=== PATIENT | female | born 1995 | race Caucasian/White ===

== ENCOUNTER 2019-08-10 16:28 | Emergency (ER) | payer BC, SELFPAY ==
[2019-08-10 16:34] VITALS: BP 113/71; PULSE 100; RESP 16; TEMP 37.4; O2SAT 100
--- NOTE | 2019-08-10 17:51 | ED.UPPEXIN ---
HPI - Extremity Injury (Upper) General Chief Complaint: Extremity Injury, Upper Stated Complaint: left shoulder pain Time Seen by Provider: 08/10/19 17:51 Source: patient and RN notes reviewed Mode of arrival: ambulatory Limitations: no limitations History of Present Illness HPI narrative: 24-year-old female accompanied by friend presents to express care with complaints of pain to her posterior left shoulder and neck which started today. Patient states that she had an injury to her left shoulder previously 2 years ago and it just started hurting her again today. Patient denies any recent known injury causing her pain. Patient states that her pain is constant and rates her pain a 8/10, has not taken any OTC analgesics for her discomfort. Patient has full ROM of left arm with no AC joint tenderness,no radiation of pain down arm, strong pulses to her left arm is able to move neck from side to side and forward and back with stated minimal increase in pain. MD complaint: injury to: left and shoulder Onset (ago): day(s) (1) Other Extremity Injury: Left: shoulder (posterior aspect) Other injuries: neck (posterior left neck) Handedness: right Place: other (states no known recent injury) Severity: moderate Severity scale (1-10): 8 Relieving factors: none Exacerbating factors: movement of extremity Context: other (injury stated 2 years ago denies any known recent injury) Associated symptoms: neck pain Treatments prior to arrival: other (none) Related Data Allergies Allergy/AdvReac Type Severity Reaction Status Date / Time clindamycin Allergy Unknown STOMACH Verified 08/10/19 16:45 PAIN/VOMITING KETOROLAC TROMETHAMINE Allergy Unknown Unknown Uncoded 08/10/19 16:45 Review of Systems Review of Systems: Narrative: CONSTITUTIONAL: Denies fever, chills, or sweats. EYES: Denies visual changes, redness, or discharge. ENT: Denies rhinorrhea, congestion, sore throat, or otalgia. CARDIOVASCULAR: Denies chest pain, palpitations, or edema. RESPIRATORY: Denies cough or dyspnea. GASTROINTESTINAL: Denies abdominal pain, nausea, vomiting, or diarrhea. GENITOURINARY: Denies dysuria or hematuria. SKIN: Denies rash or itching. MUSCULOSKELETAL: positive for posterior neck and left shoulder pain, joint pain, or myalgia. NEUROLOGIC: Denies headache, numbness, or weakness. PSYCHIATRIC: Denies anxiety or depression. All systems reviewed & are unremarkable except as noted in HPI and below PMFSH Past Medical History Medical History (Updated 08/13/19 @ 15:50 by Ilda Trujillo NP) Bipolar 1 disorder Depression History of dental problems induced hypertension Sciatica Social History Social History (Updated 08/13/19 @ 16:00 by Ilda Trujillo NP) Smoking status: Unknown if ever smoked Living arrangements: with family Gender identity (if verbalized by the patient): Female Comments At time of signature, agree with nursing past medical, surgical, social and family history. There is no relevant family history pertinent to the presenting complaint Exam Narrative: Exam Narrative: GENERAL: Well-appearing, well-nourished, is tearful HEAD: Normocephalic, atraumatic. EYES: PERRLA and EOMI. ENT: Nares clear, no rhinorrhea or epistaxis. Mucous membranes moist. NECK: Supple.no lymphadenopathy CHEST: Clear to auscultation. No respiratory distress.SAO2 100% on room air HEART: Regular rate and rhythm. No murmur heard. Normal peripheral pulses. ABDOMEN: Soft, nontender, nondistended, normal active bowel sounds. EXTREMITIES: Normal range of motion. No edema.Pain stated to posterior aspect of left shoulder radiating into left neck, has full ROM of left arm and neck with stated some increase in pain with forward extendion of left arm and movement of neck, circulation and sensation intact to left arm with strong brachial and radial pulses. SKIN: Warm, dry, no rash. NEURO: No focal deficits. Alert and oriented x3. Course Vital Signs Vital signs: Vital
== END 2019-08-10 18:12 | disposition home or self-care (01) ==
PROVIDERS: Emergency Provider Registered Nurse
DX: S46.812A Strain of other muscles, fascia and tendons at shoulder and upper arm level, left arm, initial encounter (principal); X58.XXXA Exposure to other specified factors, initial encounter
CPT/HCPCS: 99213; G0463

== ENCOUNTER 2023-10-13 11:23 | Emergency (ER) | payer BC, SELFPAY ==
[2023-10-13 11:35] VITALS: BP 117/85; PULSE 86; RESP 16; TEMP 37.1; O2SAT 100
--- NOTE | 2023-10-13 12:29 | ED.NAVMDI ---
HPI - Nausea/Vomiting/Diarrhea General Chief complaint: Nausea/Vomiting/Diarrhea Stated complaint: nausea/diarrhea/dizzy Time Seen by Provider: 10/13/23 12:00 Source: patient, RN notes reviewed and old records reviewed Mode of arrival: ambulatory Limitations: no limitations History of Present Illness HPI Narrative: 28 year old [facility] complaints of 2 day history of appetite. Patient reports that she had nausea, vomitng and diarrhea yesterday with no vomiting or diarrhea today. Patient reports that she continues to have nausea today and some dizziness. Patient reports that she had to leave work today because she was dizzy and needs work note.Patient reports no fevers chills or body aches, denies any abominal pain. Reports no one else in household ill with similar symptoms. MD elicited complaint: nausea, vomiting and diarrhea Onset (ago): day(s) (2) Description of vomiting: food contents Description of diarrhea: watery Associated nausea: Yes Associated abdominal pain: No Related Data Home Medications Medication Instructions Recorded Confirmed aripiprazole 5 mg tablet 5 mg PO DAILY 10/13/23 10/13/23 fluoxetine 20 mg capsule 20 mg PO DAILY 10/13/23 10/13/23 lamotrigine 25 mg tablet 25 mg PO DAILY 10/13/23 10/13/23 Allergies Allergy/AdvReac Type Severity Reaction Status Date / Time clindamycin Allergy Unknown STOMACH Verified 10/13/23 11:49 PAIN/VOMITING ketorolac [From Toradol] Allergy Unknown Verified 10/13/23 11:50 Review of Systems Review of Systems: CONSTITUTIONAL: Denies fever, chills, or sweats. ENT: Denies rhinorrhea, congestion, sore throat, or otalgia. CARDIOVASCULAR: Denies chest pain, palpitations, or edema. RESPIRATORY: Denies cough or dyspnea. GASTROINTESTINAL: Reports no abdominal pain, positive for nausea, vomiting, diarrhea. GENITOURINARY: Denies dysuria or hematuria. SKIN: Denies rash or itching. MUSCULOSKELETAL: Denies back pain, joint pain, or myalgia. NEUROLOGIC: Denies headache, numbness, or weakness.reports dizziness All systems reviewed & are unremarkable except as noted in HPI and below PMFSH Past Medical History Medical History Bipolar 1 disorder Depression History of dental problems induced hypertension Sciatica Surgical History Surgical History (Updated 10/14/23 @ 23:43 by Ilda Trujillo NP) H/O tubal ligation Social History Social History (Updated 10/14/23 @ 23:43 by Ilda Trujillo NP) Smoking status: Former smoker Living arrangements: with family Gender identity (if verbalized by the patient): Female Comments At time of signature, agree with nursing past medical, surgical, social and family history. There is no relevant family history pertinent to the presenting complaint Exam Narrative: GENERAL: Well-appearing, well-nourished, and in no acute distress. HEAD: Normocephalic, atraumatic. EYES: PERRLA, conjunctivae clear, and EOMI. ENT: Nares clear. Mucous membranes moist. Oropharynx without edema, erythema, or lesions. Tonsils not enlarged and without exudate. NECK: Supple. No lymphadenopathy CHEST: Speaks in full sentences. No respiratory distress. HEART: Regular rate and rhythm. ABDOMEN: Soft, flat, nondistended. No guarding, rebound tenderness, or rigid. No pulsatilla masses. Bowel sounds present in all four quadrants. No organomegaly. Negative Salazar?s sign. No periumbilical tenderness.No McBurney tenderness, No Supra public tenderness or distension. Good femoral pulses bilaterally. No hernia noted. No scars or surface trauma. SKIN: Warm, dry, no rash. NEURO:? Alert and oriented x3. PSYCH: Normal mood and affect Course Course Emergency Course: Patient is aware of diagnosis, understands and agrees to treatment plan.? Anticipatory guidance given.? Patient agrees to follow-up as directed and is aware of reasons to seek
== END 2023-10-13 12:52 | disposition home or self-care (01) ==
PROVIDERS: Emergency Provider Registered Nurse
DX: K52.9 Noninfective gastroenteritis and colitis, unspecified (principal); E86.0 Dehydration; Z87.891 Personal history of nicotine dependence; F31.9 Bipolar disorder, unspecified
CPT/HCPCS: 99213; G0463

== ENCOUNTER 2023-12-16 14:53 | Emergency (ER) | payer BC, SELFPAY ==
--- NOTE | 2023-12-16 14:57 | ED.FEMALEGU ---
HPI - Female Genitourinary General Chief complaint: Urogenital-Female Stated complaint: STD Exposure Time Seen by Provider: 12/16/23 15:08 Source: patient and RN notes reviewed Mode of arrival: ambulatory Limitations: no limitations History of Present Illness HPI Narrative: 28-year-old female presents with concern for exposure to gonorrhea. She reports she was exposed possibly 1 week ago. She denies any symptoms. Denies dysuria, frequency, urgency, vaginal discharge, abdominal pain. MD elicited complaint: possible STD Related Data Home Medications Medication Instructions Recorded Confirmed aripiprazole 5 mg tablet 5 mg PO DAILY 10/13/23 12/16/23 fluoxetine 20 mg capsule 20 mg PO DAILY 10/13/23 12/16/23 lamotrigine 25 mg tablet 25 mg PO DAILY 10/13/23 12/16/23 Allergies Allergy/AdvReac Type Severity Reaction Status Date / Time clindamycin Allergy Unknown STOMACH Verified 12/16/23 15:07 PAIN/VOMITING ketorolac [From Toradol] Allergy Unknown Verified 12/16/23 15:07 Review of Systems Review of Systems: CONSTITUTIONAL: Denies malaise, chills, sweats, or fever. CARDIOVASCULAR: Denies chest pain, palpitations, or edema. RESPIRATORY: Denies cough or dyspnea. GASTROINTESTINAL: Denies abdominal pain, nausea, vomiting, diarrhea GENITOURINARY: Denies dysuria, frequency, urgency, suprapubic pressure. Denies flank pain or hematuria. SKIN: Denies rash or itching. MUSCULOSKELETAL: Denies back pain or myalgia. All systems reviewed & are unremarkable except as noted in HPI and below PMFSH Past Medical History Medical History (Updated 12/16/23 @ 15:17 by Janet Warner NP) Bipolar 1 disorder Depression History of dental problems induced hypertension Sciatica Surgical History Surgical History (Updated 10/14/23 @ 23:43 by Ilda Trujillo NP) H/O tubal ligation Social History Social History (Updated 10/14/23 @ 23:43 by Ilda Trujillo NP) Smoking status: Former smoker Living arrangements: with family Gender identity (if verbalized by the patient): Female Comments At time of signature, agree with nursing past medical, surgical, social and family history. There is no relevant family history pertinent to the presenting complaint Exam Narrative: GENERAL: Well-appearing, well-nourished, and in no acute distress. HEAD: Normocephalic. EYES: PERRLA, conjunctivae clear. NECK: Supple. No lymphadenopathy CHEST: Clear to auscultation. No respiratory distress. HEART: Regular rate and rhythm. SKIN: Warm, dry, no rash. NEURO: Alert and oriented x3. PSYCH: Normal mood and affect Course Course Emergency Course: Patient is aware of diagnosis, understands and agrees to treatment plan. Anticipatory guidance given. Patient agrees to follow-up as directed and is aware of reasons to seek care at the emergency department. Portions of this record may have been created with voice recognition software Level of Care: Express Care Visit Vital Signs Vital signs: Reviewed. MDM - Female Genitourinary MDM Narrative Medical decision making narrative: Exam findings and UA show no acute concerns or changes; patient is non-toxic appearing and is in no distress. Patient is appropriate for outpatient treatment and follow-up. Differential Diagnosis Differential diagnosis: Likely urinary tract infection and cystitis Critical Care Time Critical Care Time Critical Care Time: No Discharge Plan Discharge Clinical Impression: Possible exposure to STD Patient Disposition: Home, Self-Care Condition: Stable Instructions: Antibiotic Form, Safe Sex Practices (ED) Additional Instructions: You have been tested for potential gonorrhea, chlamydia, and trichomoniasis today. You have received antibiotics to treat gonorrhea today. You will receive a phone call in 2-3 days with the results of today's testing and any other necessary treatment will be prescribed at that time. It is very important
[2023-12-16 15:00] VITALS: BP 116/78; PULSE 84; RESP 18; TEMP 36.8; O2SAT 100
[2023-12-16] MEDS: cefTRIAXone 500 MG, LIDOCAINE HCL 1% LOCAL INJ 1 ML IM (15:26)
[2023-12-16 16:12] LABS: EDUAAPPEAR Cloudy; EDUABILI Negative; EDUABLOOD Negative; EDUACOLOR1 Yellow; EDUAGLUCOSE Negative; EDUAKETONE Negative; EDUALEUKO Trace; EDUANITRATE Negative; EDUAPROTEIN Negative; EDUASPGRAVITY 1.025; EDUAUROBILI 0.2
[2023-12-16 17:46] LABS: Trichomonas Vag PCR DETECTED (NOT DETECTE)
[2023-12-16 18:19] LABS: Chlamydia trachomatis NOT DETECTED (NOT DETECTE); Neisseria gonorrhoeae PCR DETECTED (NOT DETECTE)
== END 2023-12-16 15:50 | disposition home or self-care (01) ==
PROVIDERS: Emergency Provider Nurse Practitioner
DX: A54.9 Gonococcal infection, unspecified (principal); A59.9 Trichomoniasis, unspecified; F31.9 Bipolar disorder, unspecified
CPT/HCPCS: 81003; 87086; 87491; 87591; 87661; 96372; 99214; G0463; J0696

== ENCOUNTER 2025-02-12 08:44 | Emergency (ER) | payer BC, SELFPAY ==
--- OUTSIDE RECORDS SUMMARY | 2013-04-02 07:46 | XMS_ITS | Continuity of Care Document ---
Author Organization [facility] Address [address] [facility] [place] [address] Phone Care Team Providers Care Plant Anatomy Teacher Name Role Phone Jose Juan TAN, Brendan Unavailable Unavailable Allergies, Adverse Reactions, Alerts Substance Reaction Status Criticality KETOROLAC TROMETHAMINE Active No In formation Procedures Procedure Date OFFICE/OUTPATIENT VISIT, [facility] Advance Directives Directive Yes / No Effective Date File Name No Information Encounters Encounter Description Practice Location Reason(s) For Visit Diagnoses Date Provider Providers Copied on Encounter [facility] [place], [id number], tel:[phone] [facility] No Information Jose Juan Cardona. [facility] organgir.am [facility] [place], [id number], . tel:[phone] Referring Provider: Brendan Manzano [address] [place] [address], [id number]. tel:[phone] OFFICE/OUTPAT IENT VISIT, [facility], [facility] [place], [place], [id number], tel:[phone] [facility] neck mass (chief complaint)b ack pain (chief complaint) Swelling, mass, or lump in head and neckLumbago Jose Juan Cardona. [address] [facility] [place], [id number], . tel:[phone] Referring Provider: Sandi Myles [place], [place], [id number]. tel:[phone] Family History Family Member Type Diagnosis Age At Onset Mother Problem (finding) Hypertension Father Problem (finding) Alive and well Sister Problem (finding) cervical CA blood clot Payers Payer name Insurance type Covered alliance party ID Authoriza tion(s) No Information Social History Type Description Quantity Date Captured Comments Sex Female Smoking Status No Information Chief Complaint And Reason For Visit No Information Plan Of Treatment Date Type Action Status Goal Tobacco cessation counseling completed Referral Ordered: Otolaryngology (related to Swelling, mass, or lump in head and neck) ordered Referral Ordered: Physical Therapy (related to Lumbago) ordered Referral Ordered: CT SOFT TISSUE NECK W/O DYE ordered Referral Ordered: Referral: Otolaryngology. Evaluate and treat. ordered Referral Referred To: Physical Therapy Ordered: Referral: Physical Therapy. ordered History Of Present Illness Encounter Date Complaint History Of Prese nt Illness No Information Instructions Date Instruction Additional Infor mation No Information Assessments Type Assessment Date No Information
--- NOTE | ~2025-02-12 | US_ITS ---
ULTRASOUND BREAST LEFT HISTORY: 29-year old female; with hard, swollen painful lump in the left breast. Skin over the lump is red. COMPARISON: None FINDINGS: Targeted ultrasound of the palpable lump in the upper outer left breast was completed. At 1:00 position there is an irregular shaped fluid collection that contains low level internal echoes and some echogenic areas located within the subcutaneous tissue but extends into the skin which is focally thickened in these area. The fluid collection measures 3.6 x 1.7 x 2.6 cm and demonstrate increased blood flow in the periphery. This finding is compatible with an abscess formation. IMPRESSION: Findings compatible with left breast abscess collection at 1:00. RECOMMENDATION: Incision and drainage of the abscess cavity. BI-RADS 2, BENIGN Reviewed, dictated and finalized at location B.
[2025-02-12 08:47] VITALS: BP 127/86; PULSE 98; RESP 16; TEMP 36.7; O2SAT 100
[2025-02-12 09:20] LABS: Hematocrit 39.1 % (37.0-47.0); Hemoglobin 13.8 g/dL (12.0-15.0); Immature Granulocyte Percent A 0.1 % (0-0.5); Lymphocytes Absolute Auto 1.27 K/mm3 (0.9-3.2); Mean Corpuscular HGB Conc 35.3 g/dl (32-36); Mean Corpuscular Hemoglobin 32.1 pg (26-34); Mean Corpuscular Volume 90.9 fl (80-100); Nucleated Red Blood Cells Absolute Auto 0.000 K/mm3 (0.0-0.012); Nucleated Red Blood Cells Perc 0.0 % (0.0-0.2); Platelet Count Result 277 k/mm3 (150-375); Red Blood Count 4.30 M/mm3 (4.2-5.4); White Blood Count 6.8 K/mm3 (4.5-10.0)
[2025-02-12 09:36] LABS: Alanine Aminotransferase 13 U/L (6-35); Albumin Level 4.6 g/dL (3.5-5.1); Alkaline Phosphatase 54 U/L (38-126); Anion Gap 9 mmol/L (4-12); Aspartate Amino Transferase 25 U/L (14-36); Bilirubin,Total 0.7 mg/dL (0.2-1.3); Blood Urea Nitrogen 9 mg/dL (7-17); Calcium 9.2 mg/dL (8.4-10.2); Carbon Dioxide 25 mmol/L (22-30); Chloride 106 mmol/L (98-107); Estimated CRCL calculation 100 ml/min; Estimated Glomerular Filt Rate > 60; Glucose 100 mg/dL (65-110); Potassium 3.6 mmol/L (3.4-5.0); Sodium 140 mmol/L (137-145); Total Protein 7.5 g/dL (6.3-8.2)
[2025-02-12 10:46] LABS: BEDSIDEPREGUCG Negative (Negative)
[2025-02-12 10:52] LABS: Add Urine Microscopic? YES; Appearance Urine Clear (Clear); Glucose Urine UA Negative (Negative); Leukocyte Esterase Ur Negative LEU/UL (Negative); Nitrate Urine Negative (Negative); Non Pathogenic Casts 0-2; Specific Grav Ur 1.021 (1.001-1.035)
--- NOTE | 2025-02-12 12:21 | ED.SKABFB ---
HPI - Skin/Abscess/Foreign Bdy General Chief complaint: Skin/Abscess/Foreign Body Stated complaint: CYST ON L BREAST Time Seen by Provider: 02/12/25 12:05 History of Present Illness HPI narrative: This is a 29-year-old female with history of anxiety who presents to the ED for breast infection. Patient states that for the past 10 years, she has had a gradually growing left breast cyst. She states for the past week or so, it has become more red and painful. She has not been able follow-up with a director market research due to insurance reasons. She has an appoint with her PCP in a couple weeks to establish care. Denies weight loss, fevers, chills. She does have family history of breast cancer in her mother's sister. Related Data Home Medications ?Medication ?Instructions ?Recorded ?Confirmed ?Last Taken ?Type aripiprazole 5 mg tablet 5 mg PO DAILY 10/13/23 12/16/23 Unknown History fluoxetine 20 mg capsule 20 mg PO DAILY 10/13/23 12/16/23 Unknown History lamotrigine 25 mg tablet 25 mg PO DAILY 10/13/23 12/16/23 Unknown History Allergies Allergy/AdvReac Type Severity Reaction Status Date / Time clindamycin Allergy Unknown STOMACH Verified 02/12/25 08:45 PAIN/VOMITING ketorolac (From Toradol) Allergy Unknown Verified 02/12/25 08:45 Review of Systems Review of Systems: Gen.: Denies fevers or chills Eyes: Denies eye pain or visual change ENT: Denies congestion Respiratory: Denies shortness of breath or cough CV: Denies chest pain or palpitations GI: Denies abdominal pain nausea, emesis or diarrhea denies burning, urgency, frequency or hematuria Musculoskeletal: Denies back pain or muscle pain Neuro: Denies numbness, tingling, weakness or focal weakness Skin: As per HPI Except as documented, all other systems reviewed and negative [facility] Past Medical History Medical History History of dental problems Sciatica induced hypertension Depression Bipolar 1 disorder Surgical History Surgical History H/O tubal ligation Social History Social History Smoking status: Former smoker Living arrangements: with family Gender identity (if verbalized by the patient): Female Exam Narrative: APPEARANCE: No acute distress, nontoxic, resting in bed HEENT: Normocephalic, atraumatic, OMM RESPIRATORY: No respiratory distress CARDIOVASCULAR: Appears well perfused ABDOMINAL: Nondistended MUSCULOSKELETAl: Moves all extremities. No obvious deformities NEURO: Awake and alert. SKIN:: 3 x 4 cm area of induration to the left breast approximately 1 o clock with surrounding erythema, warmth PSYCHIATRIC: Normal affect/mood, Course Vital Signs Vital signs: Vital Signs Temperature 98.1 F 02/12/25 08:47 Pulse Rate 98 02/12/25 08:47 Respiratory Rate 16 02/12/25 08:47 Blood Pressure 127/86 02/12/25 08:47 Pulse Oximetry 100 02/12/25 08:47 Oxygen Delivery Room Air 02/12/25 08:47 Temperature 98 F 02/12/25 14:56 Pulse Rate 66 02/12/25 14:56 Respiratory Rate 18 02/12/25 14:56 Blood Pressure 129/93 H 02/12/25 14:56 Pulse Oximetry 100 02/12/25 14:56 Oxygen Delivery Room Air 02/12/25 08:47 Procedures Abscess I/D Left breast: Date of Incision: 02/12/25 Time of Incision: 14:20 Side (if applicable): left Sedation/analgesia: none Local Anesthetic: lidocaine 2% Amount of anesthesia used (mL): 5 Technique: incised with #11 blade Amount of fluid expressed (mL): 10 Irrigation: No Packing used?: iodoform I&D Results: Pus MDM - Skin/Abscess/Foreign Bdy MDM Narrative Medical decision making narrative: 29-year-old female who presents to the ED for left breast pain/mass. On initial evaluation, patient was in no acute distress, afebrile, hemodynamically stable. She did have a large erythematous indurated lesion to her left breast. Ultrasound was obtained which did reveal this was likely an abscess. On re-evaluation of the area, he was much more fluctuant at this time. Because of this, incision and drainage was performed. Patient tolerated procedure well. She was given a prescription for Bactrim. She was advised follow-up with her PCP and with Gynecology in the next week for evaluation. Patient was agreeable to this plan. Given strict return precautions. Differential Diagnosis Differential diagnosis: Likely abscess of skin or subcutaneous tissue and other (cyst, cancer) Medical Records Attestation: I reviewed the patient's medical records. Lab Data Attestation: I reviewed the patient's lab results. 02/12/25 09:04 02/12/25 09:04 Labs: Lab Results 02/12/25 02/12/25 02/12/25 Range/Units 09:04 10:42 10:44 WBC 6.8 (4.5-10.0) K/mm3 RBC 4.30 (4.2-5.4) M/mm3 Hgb 13.8 (12.0-15.0) g/dL Hct 39.1 (37.0-47.0) % MCV 90.9 (80-100) fl MCH 32.1 (26-34) pg MCHC 35.3 (32-36) g/dl RDW 12.5 (11.5-14.5) % Plt Count 277 (150-375) k/mm3 MPV 10.1 (7.4-10.4) fl Immature Gran % (Auto) 0.1 (0-0.5) % Neut % (Auto) 71.3 (45.5-73.1) % Lymph % (Auto) 18.8 (18.3-44.2) % [place] % (Auto) 6.8 (2.6-8.5) % Eos % (Auto) 2.1 (0-4.4) % Baso % (Auto) 0.9 (0.2-1.2) % Lymph # (Auto) 1.27 (0.9-3.2) K/mm3 [place] # (Auto) 0.5 (0.1-0.6) K/mm3 Eos # (Auto) 0.1 (0-0.3) K/mm3 Baso # (Auto) 0.1 (0.0-0.1) K/mm3 Abs Immat Gran (auto) 0.01 (0.00-0.031) K/mm3 Absolute Neuts (auto) 4.8 (1.3-6.7) K/mm3 Absolute Nucleated RBC 0.000 (0.0-0.012) K/mm3 Nucleated RBC % 0.0 (0.0-0.2) % Sodium 140 (137-145) mmol/L Potassium 3.6 (3.4-5.0) mmol/L Chloride 106 (98-107) mmol/L Carbon Dioxide 25 (22-30) mmol/L Anion Gap 9 (4-12) mmol/L BUN 9 (7-17) mg/dL Creatinine 0.55 L (0.7-1.0) mg/dL Estim Creat Clear Calc 100 ml/min Estimated GFR > 60 (59 - ) Glucose 100 (65-110) mg/dL Lactic Acid 0.7 (0.7-2.0) mmol/L Calcium 9.2 (8.4-10.2) mg/dL Total Bilirubin 0.7 (0.2-1.3) mg/dL AST 25 (14-36) U/L ALT 13 (6-35) U/L Alkaline Phosphatase 54 (38-126) U/L Total Protein 7.5 (6.3-8.2) g/dL Albumin 4.6 (3.5-5.1) g/dL Urine Color Yellow (Yellow) Urine Appearance Clear (Clear) Urine pH 7.5 (5.0-9.0) Ur Specific [place] 1.021 (1.001-1.035) Urine Protein Negative (Negative) mg/dL Urine Glucose (UA) Negative (Negative) mg/dL Urine Ketones Negative (Negative) mg/dL Ur Blood (Man) 2+ H (Negative) Urine Nitrate Negative (Negative) Urine Bilirubin Negative (Negative) Urine Urobilinogen 1.0 (<2.0) mg/dL Leukocyte Esterase Rfl Negative (Negative) JESÚS/UL Urine RBC 0-2 (0-2) /hpf Urine WBC 0-5 (0-3) /hpf Ur Squamous Epith Cells None seen (Few) /hpf Urine Bacteria None seen /hpf Urine Casts 0-2 POC Urine HCG, Qual Negative (Negative) Imaging Data Radiologist's impression: Impressions Breast Ultrasound 02/12/25 13:40 IMPRESSION: Findings compatible with left breast abscess collection at 1:00. RECOMMENDATION: Incision and drainage of the abscess cavity. BI-RADS 2, BENIGN Discharge Plan Discharge Clinical Impression: Abscess of skin or subcutaneous tissue Qualifiers: Site of cutaneous abscess: trunk Site of cutaneous abscess of trunk: chest wall Qualified Code(s): L02.213 - Cutaneous abscess of chest wall Patient Disposition: Home Condition: Stable Instructions: Antibiotic Form, Abscess (ED) Additional Instructions: Change the packing every other day. Take Bactrim as prescribed. Follow-up with the PCP in the next week for re-evaluation. Return to the ED for any new or worsening symptoms. Patient Language: [place] Prescriptions: New sulfamethoxazole-trimethoprim [Bactrim DS] 800-160 mg tablet 1 tablet PO Q12H Qty: 10 0RF No Action lamotrigine 25 mg tablet 25 mg PO DAILY fluoxetine 20 mg capsule 20 mg PO DAILY aripiprazole 5 mg tablet 5 mg PO DAILY metronidazole 500 mg tablet 500 mg PO Q12H 7 Days Qty: 14 0RF Follow-up/Referrals: Daniel,Negrita Childs, DIRECTOR LEARNING SERVICES [Primary Care Provider, Unknown]
--- OUTSIDE RECORDS SUMMARY | 2025-02-12 13:03 | XMS_ITS | Clinical Summary ---
Author Organization [facility] Address [address] [place] [address] Phone Care Team Providers Care Director Of Entertainment Name Role Phone Milind Gonzales MD Primary Care Provider [phone] Encounters Date Type Department Care Team Description 02/10/2025 Telephone [facility] [address] [place] [address] Provider, None New Patient (OB services) from Last 3 Months Social History Tobacco Use Types Packs/Day Years Used Date Smoking Tobacco: Never Assessed Comments Unknown Sex and Gender Information Value Date Recorded Sex Assigned at Not on file Legal Sex 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[employer] Gender Identity Not on file Sexual Orientation Not on file Plan of Treatment Health Maintenance Due Date Last Done Comments Hepatitis C Virus (HCV) Screening 1994 TdaP Immunization 1994 Hepatitis B Immunization (1 of 3 - 19+ 3-dose series) 2013 Pap Smear 08/10/2015 Human Papillomavirus (HPV) Immunization (1 - 3-dose SCDM series) 2021 Cervical Cancer Screening (CCS) 2024 HPV/Cotest 2024 Influenza Immunization (#1) 2025 SARS-COV-2 Immunization ( season) 2025 Respiratory Syncytial Virus (RSV) Immunization (Adult) (1 - 1-dose 75+ series) 2069 Meningococcal Immunization (ACWY) Aged Out No longer eligible based on patient's age to complete this topic Pneumococcal Immunization Combined Aged Out No longer eligible based on patient's age to complete this topic Rotavirus Immunization Aged Out No lo nger eligible based on patient's age to complete this topic Care Teams Director Of Entertainment Relationship Specialty Start Date End Date Milind Gonzales MD [address] [place] [id number] PCP - General Internal Medicine 06/17/21
--- OUTSIDE RECORDS SUMMARY | 2025-02-12 13:03 | XMS_ITS | Encounter Summary ---
Author Organization [facility] Address [address] [place] [address] Phone Care Team Providers Care Polishing Machine Operator Helper Name Role Phone Milind Gonzales MD Primary Care Provider [phone] Encounter Details Date Type Department Care Team (Late st Contact Info) Description 06/11/2021 [facility]cribe [facility] Central Scheduling [address] [place] [address] Milind Gonzales MD [address] [place] [address] Social History Tobacco Use Types Packs/Day Years Used Date Smoking Tobacco: Never Assessed Comments Unknown Sex and Gender Information Value Date Recorded Sex Assigned at Not on file 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
[2025-02-12 13:06] VITALS: BP 124/99; PULSE 82; RESP 18; O2SAT 100
[2025-02-12] MEDS: LIDOCAINE 2% LOCAL INJ 20 ML VIAL 5 ML INFILTRATE (14:16)
[2025-02-12] MEDS: ACETAMINOPHEN 500 MG TABLET 1000 MG PO (14:16)
[2025-02-12] MEDS: MORPHINE SULFATE (*CRX) 4 MG/ML INJ IV PUSH (14:20)
[2025-02-12 14:56] VITALS: BP 129/93; PULSE 66; RESP 18; TEMP 36.6; O2SAT 100
== END 2025-02-12 15:00 | disposition home or self-care (01) ==
PROVIDERS: Emergency Medicine; Emergency Provider Student in an Organized Health Care Education/Training Program
DX: N61.1 Abscess of the breast and nipple (principal); F31.9 Bipolar disorder, unspecified; Z87.891 Personal history of nicotine dependence; Z79.899 Other long term (current) drug therapy
CPT/HCPCS: 10061; 36415; 76642; 80053; 81001; 81025; 83605; 85025; 87070; 87075; 96374; 99284; A9270; J2003; J2270

== ENCOUNTER 2025-04-23 09:45 | Emergency (ER) | payer BC, SELFPAY ==
[2025-04-23 09:49] VITALS: BP 135/95; PULSE 75; RESP 18; TEMP 36.7; O2SAT 100
[2025-04-23] MEDS: cefTRIAXone 500 MG, LIDOCAINE 1% LOCAL INJ 1 ML IM (10:23)
--- NOTE | 2025-04-23 10:27 | ED.FEMALEGU ---
HPI - Female Genitourinary General Chief complaint: Urogenital-Female Stated complaint: STD test Time Seen by Provider: 04/23/25 10:10 Source: patient and RN notes reviewed Mode of arrival: ambulatory Limitations: no limitations History of Present Illness HPI Narrative: 29-year-old female patient presents today requesting testing for gonorrhea. States significant other told her this week he has tested positive. States she does not know other things that he was tested for. She does not want testing for anything else. She denies any current symptoms. She does not know the last time she had unprotected intercourse. Denies any other partners. She has had gonorrhea in the past. Related Data Home Medications ?Medication ?Instructions ?Recorded ?Confirmed ?Last Taken ?Type aripiprazole 5 mg tablet 5 mg PO DAILY 10/13/23 12/16/23 Unknown History fluoxetine 20 mg capsule 20 mg PO DAILY 10/13/23 12/16/23 Unknown History lamotrigine 25 mg tablet 25 mg PO DAILY 10/13/23 12/16/23 Unknown History ergocalciferol (vitamin D2) 1,250 04/23/25 Unknown History mcg (50,000 unit) capsule Allergies Allergy/AdvReac Type Severity Reaction Status Date / Time clindamycin Allergy Unknown STOMACH Verified 04/23/25 09:56 PAIN/VOMITING ketorolac (From Toradol) Allergy Unknown Verified 04/23/25 09:56 PMFSH Past Medical History Medical History History of dental problems Sciatica induced hypertension Depression Bipolar 1 disorder Surgical History Surgical History H/O tubal ligation Social History Social History Smoking status: Former smoker Living arrangements: with family Gender identity (if verbalized by the patient): Female Comments At time of signature, I have reviewed and agree with nursing past medical, surgical, social and family history unless otherwise noted. Please see nursing chart for further information. There is no relevant family history pertinent to the presenting complaint Exam Narrative: GENERAL: Well-appearing, well-nourished, and in no acute distress. HEAD: Normocephalic, atraumatic. EYES: EOMI. No redness or drainage. Conjunctivae normal. ENT: Mucous membranes pink and moist. NECK: Normal AROM. CHEST: No respiratory distress. EXTREMITIES: Normal range of motion. No edema. SKIN: Warm, dry, no rash. Capillary refill normal. NEURO: No focal deficits. Alert and oriented x3. Gait steady. PSYCH: Normal affect. No signs of depression or anxiety. Course Course Level of Care: Express Care Visit Vital Signs Vital signs: Vital Signs Temperature 98.1 F 04/23/25 09:49 Pulse Rate 75 04/23/25 09:49 Respiratory Rate 18 04/23/25 09:49 Blood Pressure 135/95 H 04/23/25 09:49 Pulse Oximetry 100 04/23/25 09:49 Oxygen Delivery Room Air 04/23/25 09:49 Temperature 98.1 F 04/23/25 09:49 Pulse Rate 75 04/23/25 09:49 Respiratory Rate 18 04/23/25 09:49 Blood Pressure 135/95 H 04/23/25 09:49 Pulse Oximetry 100 04/23/25 09:49 Oxygen Delivery Room Air 04/23/25 09:49 Reviewed MDM - Female Genitourinary MDM Narrative Medical decision making narrative: 29-year-old female patient presents today requesting testing for gonorrhea. States significant other told her this week he has tested positive. States she does not know other things that he was tested for. She does not want testing for anything else. She denies any current symptoms. She does not know the last time she had unprotected intercourse. Denies any other partners. She has had gonorrhea in the past. Normal physical exam. Urine will be sent off to test for gonorrhea/chlamydia. Patient has been given a dose of Rocephin to cover for gonorrhea. She has declined a prescription for doxycycline for chlamydia. She has declined testing for Trichomonas. Discussed possibility for co-infection with gonorrhea. Patient agrees with plan. Vital signs stable. Anticipatory guidance given. Differential Diagnosis Differential diagnosis: Likely trichomoniasis and other (Gonorrhea, chlamydia) Critical Care Time Critical Care Time Critical Care Time: No Discharge Plan Discharge Clinical Impression: Exposure to gonorrhea Patient Disposition: Home Condition: Stable Instructions: Gonorrhea (ED) Additional Instructions: You have been treated for gonorrhea with a dose of Rocephin. If you are positive you should need no further treatment. You have also been tested for chlamydia and will be notified of any positive results. Please follow up with your MEN'S AND BOYS' CLOTHING SALESPERSON with any further concerns. Patient Language: Danish Prescriptions: No Action lamotrigine 25 mg tablet 25 mg PO DAILY fluoxetine 20 mg capsule 20 mg PO DAILY aripiprazole 5 mg tablet 5 mg PO DAILY ergocalciferol (vitamin D2) 1,250 mcg (50,000 unit) capsule Follow-up/Referrals: Daniel,Negrita Childs, HEAD STILL OPERATOR [Primary Care Provider, Unknown] Time of Disposition: 10:19
--- OUTSIDE RECORDS SUMMARY | 2025-04-23 13:08 | XMS_ITS | Clinical Summary ---
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
--- OUTSIDE RECORDS SUMMARY | 2025-04-23 13:08 | XMS_ITS | Encounter Summary ---
Author Organization [facility] Address [address] [place] [address] Phone Care Team Providers Care Rn Pacu Name Role Phone Milind Gonzales MD Primary Care Provider [phone] Encounter Details Date Type Department Care Team (Late st Contact Info) Description 06/11/2021 Transcribe Orders [facility] Central Scheduling [address] [place] [address] Milind Gonzales MD [address] [place] [address] Social History Tobacco Use Types Packs/Day Years Used Date Smoking Tobacco: Never Assessed Comments Unknown Sex and Gender Information Value Date Recorded Sex Assigned at Not on file 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
== END 2025-04-23 10:40 | disposition home or self-care (01) ==
PROVIDERS: Emergency Provider Nurse Practitioner
DX: Z20.2 Contact with and (suspected) exposure to infections with a predominantly sexual mode of transmission (principal); Z87.891 Personal history of nicotine dependence; F31.9 Bipolar disorder, unspecified
CPT/HCPCS: 87491; 87591; 96372; 99213; G0463; J0696; J2003